=== PATIENT | male | born 1955 | race Caucasian/White ===

== ENCOUNTER → 2018-10-02 | Outpatient (CLI) | payer BC ==
[2018-10-02 09:27] LABS: ALANINE AMINOTRANSFERASE 24 U/L (0-55); ALBUMIN 4.4 GM/DL (3.2-4.5); ALKALINE PHOSPHATASE 62 U/L (40-136); BILIRUBIN,TOTAL 1.6 MG/DL (0.1-1.0); BUN/CREATININE RATIO 18; CALCIUM 9.4 MG/DL (8.5-10.1); CARBON DIOXIDE 23 MMOL/L (21-32); CHLORIDE 103 MMOL/L (98-107); CHOLESTEROL 202 MG/DL (< 200); CREATININE SERUM 0.84 MG/DL (0.60-1.30); GFR ESTIMATED > 60; GLUCOSE 109 MG/DL (70-105); HDL CHOLESTEROL 72 MG/DL (40-60); POTASSIUM 4.2 MMOL/L (3.6-5.0); SODIUM 138 MMOL/L (135-145); TOTAL PROTEIN 7.5 GM/DL (6.4-8.2); TRIGLYCERIDES 97 MG/DL (<150); VLDL CHOLESTEROL 19 MG/DL (5-40)
== END ==
LOC: LAB FS 07:11
PROVIDERS: ATTEND Family Medicine
DX: R73.03 Prediabetes (principal); E78.5 Hyperlipidemia, unspecified
CPT/HCPCS: 36415; 80053; 80061; 83036

== ENCOUNTER → 2018-11-07 | Outpatient (CLI) | payer BC ==
[2018-11-07 14:57] LABS: ALBUMIN 4.2 GM/DL (3.2-4.5); BILIRUBIN,DIRECT 0.4 MG/DL (0.0-0.3); BILIRUBIN,INDIRECT 0.5 MG/DL; BILIRUBIN,TOTAL 0.9 MG/DL (0.1-1.0); TOTAL PROTEIN 6.4 GM/DL (6.4-8.2)
== END ==
LOC: LAB FS 07:16
PROVIDERS: ATTEND Family Medicine
DX: E78.00 Pure hypercholesterolemia, unspecified (principal)
CPT/HCPCS: 36415; 80076

== ENCOUNTER → 2019-04-22 | Outpatient (CLI) | payer BC ==
[2019-04-22 07:48] LABS: CARBON DIOXIDE 26 MMOL/L (21-32); CHLORIDE 103 MMOL/L (98-107); POTASSIUM 3.9 MMOL/L (3.6-5.0); SODIUM 138 MMOL/L (135-145)
[2019-04-22 07:49] LABS: ALANINE AMINOTRANSFERASE 23 U/L (0-55); ALBUMIN 4.3 GM/DL (3.2-4.5); ALKALINE PHOSPHATASE 60 U/L (40-136); BUN/CREATININE RATIO 18; CALCIUM 8.8 MG/DL (8.5-10.1); CREATININE SERUM 0.83 MG/DL (0.60-1.30); GFR ESTIMATED > 60; GLUCOSE 117 MG/DL (70-105)
[2019-04-22 14:56] LABS: CHOLESTEROL 181 MG/DL (< 200); HDL CHOLESTEROL 77 MG/DL (40-60); TRIGLYCERIDES 74 MG/DL (<150); VLDL CHOLESTEROL 15 MG/DL (5-40)
== END ==
LOC: LAB FS 07:04
PROVIDERS: ATTEND Family Medicine
DX: E78.00 Pure hypercholesterolemia, unspecified (principal); R73.03 Prediabetes
CPT/HCPCS: 36415; 80053; 80061

== ENCOUNTER → 2020-01-23 | Outpatient (CLI) | payer BC ==
[2020-01-23 09:00] LABS: CARBON DIOXIDE 26 MMOL/L (21-32); CHLORIDE 102 MMOL/L (98-107); POTASSIUM 4.2 MMOL/L (3.6-5.0); SODIUM 138 MMOL/L (135-145)
[2020-01-23 09:01] LABS: ALANINE AMINOTRANSFERASE 24 U/L (0-55); ALBUMIN 4.1 GM/DL (3.2-4.5); ALKALINE PHOSPHATASE 75 U/L (40-136); BILIRUBIN,TOTAL 1.2 MG/DL (0.1-1.0); BUN/CREATININE RATIO 20; CALCIUM 8.8 MG/DL (8.5-10.1); CREATININE SERUM 0.81 MG/DL (0.60-1.30); GFR ESTIMATED > 60; GLUCOSE 117 MG/DL (70-105)
[2020-01-23 14:43] LABS: CHOLESTEROL 180 MG/DL (< 200); HDL CHOLESTEROL 79 MG/DL (40-60); TRIGLYCERIDES 66 MG/DL (<150); VLDL CHOLESTEROL 13 MG/DL (5-40)
== END ==
LOC: LAB FS 07:13
PROVIDERS: ATTEND Family Medicine
DX: E78.5 Hyperlipidemia, unspecified (principal); R73.03 Prediabetes
CPT/HCPCS: 36415; 80053; 80061; 83036

== ENCOUNTER 2020-12-14 07:19 | Emergency (ER) | payer BC ==
[~2020-12-14] VITALS: Ht 182.9 cm; Wt 88.9 kg
--- NOTE | 2020-12-14 07:48 | Diagnostic Imaging Report ---
EXAMINATION: Chest radiograph, portable AP view. DATE: 12/14/2020 7:45 AM INDICATION: 65-year-old male, shortness of breath. COMPARISON: None. FINDINGS: Heart size and mediastinal contours are unremarkable. There is no identified pneumothorax. There is no large pleural effusion. There are mild linear opacities in the left lower lobe likely reflecting subsegmental atelectasis. IMPRESSION: 1. Linear opacities in left lower lobe most likely reflect subsegmental atelectasis. 2. No definite acute cardiopulmonary abnormality. Dictated by: Dictated on workstation # [id number]
[2020-12-14 08:17] LABS: HEMATOCRIT 45 % (40-54); HEMOGLOBIN 15.7 G/DL (13.3-17.7); MEAN CORPUSCULAR HEMOGLOBIN 32 PG (25-34); MEAN CORPUSCULAR VOLUME 93 FL (80-99); WHITE BLOOD COUNT 4.3 10^3/uL (4.3-11.0)
[2020-12-14 08:18] LABS: BASOPHILS % (AUTO) 0 % (0-10); EOSINOPHILS % (AUTO) 0 % (0-10); LYMPHOCYTES # (AUTO) 1.1 X 10^3 (1.0-4.0); LYMPHOCYTES % (AUTO) 26 % (12-44); MEAN CORPUSCULAR HGB CONC 35 G/DL (32-36); MEAN PLATELET VOLUME 10.3 FL (7.4-10.4); MONOCYTES # (AUTO) 0.7 X 10^3 (0.0-1.0); MONOCYTES % (AUTO) 15 % (0-12); NEUTROPHILS # (AUTO) 2.5 X 10^3 (1.8-7.8); NEUTROPHILS % (AUTO) 58 % (42-75); PLATELET COUNT 193 10^3/uL (130-400); SMEAR SCAN COMMENT YES
[2020-12-14 08:23] LABS: ALANINE AMINOTRANSFERASE 34 U/L (0-55); ALBUMIN 4.2 GM/DL (3.2-4.5); ALKALINE PHOSPHATASE 74 U/L (40-136); BILIRUBIN,TOTAL 0.4 MG/DL (0.1-1.0); BUN/CREATININE RATIO 14; CALCIUM 8.5 MG/DL (8.5-10.1); CARBON DIOXIDE 25 MMOL/L (21-32); CHLORIDE 100 MMOL/L (98-107); CREATININE SERUM 0.98 MG/DL (0.60-1.30); GFR ESTIMATED > 60; GLUCOSE 110 MG/DL (70-105); POTASSIUM 4.4 MMOL/L (3.6-5.0); SODIUM 137 MMOL/L (135-145); TOTAL PROTEIN 7.5 GM/DL (6.4-8.2)
--- NOTE | 2020-12-14 08:46 | ED Cough/URI ---
General Chief Complaint: Respiratory Problems Stated Complaint: COUGH; FEVER; GEN WEAKNESS Nursing Triage Note: Patient reports he began having symptoms of cough, fever, generalized body aches and weakness one week ago, states he tested positive for COVID-19 one week ago. He reports his cough and activity intolerance have not improved, states he is still running low grade temperatures as of this morning. Source: patient History of Present Illness Date Seen by Provider: Dec 14, 2020 Time Seen by Provider: 07:30 Initial Comments Patient is a 65-year-old male who presents with recent diagnosis Covid 7 days ago with persistent cough, generalized body aches, chills and generalized weakness. Patient states he has poor tolerance to activity and has not been able to complete the weedeater mowing his lawn. He has continued to run low-grade fever this morning of 100.3. He reports headache that is mild. Denies chest pain palpitation and shortness of breath. He denies nausea and vomiting. He is able to keep fluids and food down. He does not have shortness of breath. Patient has taken [id number] meds without improvement. He did contact his PCP yesterday and had a prescriptions of antibiotics steroids and an inhaler called in. He has not yet picked these medications up. Patient denies any other symptoms or complaint. Timing/Duration: changing over time Severity/Quality: dry cough, other Modifying Factors: Improves With Activity, Improves With Rest Associated Symptoms: cough, fever/chills, headache, muscle aches, nasal drainage Allergies and Home Medications Allergies Coded Allergies: No Known Drug Allergies (Unverified , 12/14/20) Patient Home Medication List Home Medication List Reviewed: Yes Review of Systems Review of Systems Constitutional: see HPI EENTM: see HPI Respiratory: see HPI Cardiovascular: see HPI Gastrointestinal: see HPI Genitourinary: see HPI Musculoskeletal: see HPI Skin: see HPI Psychiatric/Neurological: See HPI Hematologic/Lymphatic: See HPI Immunological/Allergic: see HPI All Other Systems Reviewed Negative Unless Noted: Yes Past Jcgqbvj-Nycybh-Fnodwe Hx Patient Social History Tobacco Use?: Yes Substance use?: No Alcohol Use?: Yes Alcohol type: Beer Alcohol Frequency: Daily Pt feels they are or have been: No Past Medical History Surgery/Hospitalization HX: HTN, Diverticulitis Physical Exam Vital Signs - First Documented 12/14/20 07:30 Temp 36.1 Pulse 87 Resp 16 B/P (MAP) 114/71 (85) Pulse Ox 96 O2 Delivery Room Air Capillary Refill : Less Than 3 Seconds Height: '" Weight: lbs. oz. kg; 26.00 BMI Method: General Appearance: other (Anxious) Eyes: Bilateral Eye Normal Inspection, Bilateral Eye PERRL, Bilateral Eye EOMI HEENT: PERRL/EOMI, TMs normal, other (Conjunctiva injected) Neck: non-tender, full range of motion, supple Respiratory: chest non-tender, lungs clear, normal breath sounds Cardiovascular: normal peripheral pulses, regular rate, rhythm Gastrointestinal: non tender, soft Extremities: normal range of motion, non-tender Neurologic/Psychiatric: surgical coder II-XII nml as tested, alert, oriented x 3 Skin: normal color Lymphatic: axilla node tender (R) Focused Exam Sepsis Stage: Ruled Out Lactate Level 12/14/20 07:45: Lactic Acid Level 1.16 Lactic Acid Level Laboratory Tests Test 12/14/20 07:45 Lactic Acid Level 1.16 MMOL/L (0.50-2.00) Progress/Results/Core Measures Suspected Sepsis SIRS Temperature: Pulse: 87 Respiratory Rate: 16 Laboratory Tests 12/14/20 07:45: White Blood Count 4.3 Blood Pressure 114 /71 Mean: 85 12/14/20 07:45: Lactic Acid Level 1.16 Laboratory Tests 12/14/20 07:45: Creatinine 0.98, Platelet Count 193, Total Bilirubin 0.4 Results/Orders Lab Results Laboratory Tests Test 12/14/20 07:45 Range/Units White Blood Count 4.3 4.3-11.0 10^3/uL Red Blood Count 4.85 4.35-5.85 10^6/uL Hemoglobin 15.7 13.3-17.7 G/DL Hematocrit 45 40-54 % Mean Corpuscular Volume 93 80-99 FL Mean Corpuscular Hemoglobin 32 25-34 PG Mean Corpuscular Hemoglobin Concent 35 32-36 G/DL Red Cell Distribution Width 11.2 10.0-14.5 % Platelet Count 193 130-400 10^3/uL Mean Platelet Volume 10.3 7.4-10.4 FL Immature Granulocyte % (Auto) 1 % Neutrophils (%) (Auto) 58 42-75 % Lymphocytes (%) (Auto) 26 12-44 % Monocytes (%) (Auto) 15 H 0-12 % Eosinophils (%) (Auto) 0 0-10 % Basophils (%) (Auto) 0 0-10 % Neutrophils # (Auto) 2.5 1.8-7.8 X 10^3 Lymphocytes # (Auto) 1.1 1.0-4.0 X 10^3 Monocytes # (Auto) 0.7 0.0-1.0 X 10^3 Eosinophils # (Auto) 0.0 0.0-0.3 10^3/uL Basophils # (Auto) 0.0 0.0-0.1 10^3/uL Immature Granulocyte # (Auto) 0.0 0.0-0.1 10^3/uL Sodium Level 137 135-145 MMOL/L Potassium Level 4.4 3.6-5.0 MMOL/L Chloride Level 100 98-107 MMOL/L Carbon Dioxide Level 25 21-32 MMOL/L Anion Gap 12 5-14 MMOL/L Blood Urea Nitrogen 14 7-18 MG/DL Creatinine 0.98 0.60-1.30 MG/DL Estimat Glomerular Filtration Rate > 60 BUN/Creatinine Ratio 14 Glucose Level 110 H 70-105 MG/DL Lactic Acid Level 1.16 0.50-2.00 MMOL/L Calcium Level 8.5 8.5-10.1 MG/DL Corrected Calcium 8.3 L 8.5-10.1 MG/DL Total Bilirubin 0.4 0.1-1.0 MG/DL Aspartate Amino Transf (AST/SGOT) 29 5-34 U/L Alanine Aminotransferase (ALT/SGPT) 34 0-55 U/L Alkaline Phosphatase 74 40-136 U/L Troponin I < 0.30 <0.30 NG/ML Total Protein 7.5 6.4-8.2 GM/DL Albumin 4.2 3.2-4.5 GM/DL Smear Scan YES My Orders Orders - GIFTY RHODES DO Cbc With Automated Diff (12/14/20 07:31) Comprehensive Metabolic Panel (12/14/20 07:31) Troponin I Fs (12/14/20 07:31) Chest 1 View Ap/Pa Only (12/14/20 07:31) Lactic Acid Analyzer (12/14/20 07:31) Ekg Tracing (12/14/20 08:16) Vital Signs/I&O 12/14/20 07:30 Temp 36.1 Pulse 87 Resp 16 B/P (MAP) 114/71 (85) Pulse Ox 96 O2 Delivery Room Air Capillary Refill : Less Than 3 Seconds Blood Pressure Mean: 85 Departure Communication (Admissions) EKG: Normal sinus rhythm, no acute ST-T wave changes. Chest x-ray, basilar atelectasis, no discrete infiltrate per radiology report. Patient with generalized weakness, fatigue with known Covid. Vital signs stable in the ED. He maintains O2 saturation greater than 94% on room air with minimal respiratory effort. Chest x-ray, EKG and labs reviewed without evidence of complication. IV fluids and Toradol given. Patient reassured. Recommendations for continued supportive care and picking up prescriptions at pharmacy upon departing the ED. Return precautions reviewed. Patient verbalizes understanding agreement with discharge instructions prior to departure. Impression Primary Impression: COVID-19 Disposition: 01 HOME, SELF-CARE Condition: Stable Departure-Patient Inst. Decision time for Depature: 08:47 Referrals: KAYLEIGH PATTON MD (PCP/Family) Primary Care Physician Patient Instructions: COVID-19 (DC) Add. Discharge Instructions: Please fill prescription medications provided to you by your primary care provid er upon leaving the emergency department. Also, please monitor your oxygen levels with a digital oxygen sensor available at local pharmacy. Return to the ED if worsening symptoms or failure to maintain an oxygen level of greater than 90%. Continue self quarantine until 3 days after your symptoms resolved. All discharge instructions reviewed with patient and/or family. Voiced un derstanding. GIFTY RHODES DO Dec 14, 2020 08:46
[2020-12-14] MEDS ORDERED: KETOROLAC 30 MG/ML VIAL IVP ONE (09:00)
[2020-12-14] MEDS ORDERED: NS IV 1000 ML 1,000 ML IV SCH (09:00)
[2020-12-14 09:30] VITALS: BP 121/77
== END 2020-12-14 09:30 | disposition home or self-care (01) ==
LOC: EDUNIT# 07:19 → ER FS 07:22
DX: U07.1 COVID-19 (principal); I10 Essential (primary) hypertension
CPT/HCPCS: 36415; 71045; 80053; 83605; 84484; 85025; 93005

== ENCOUNTER → 2021-06-22 | Outpatient (CLI) | payer BC ==
--- NOTE | 2021-06-22 12:49 | Diagnostic Imaging Report ---
CLINICAL INDICATION: Patient with pain in right shoulder, working on engine and heard a pop about 3 weeks ago. EXAM: X-ray of the right shoulder, 3 views. COMPARISON: None. FINDINGS: There is no acute fracture or dislocation. There are small to moderate sized spurs involving the proximal humeral head/neck junction region and right glenoid. There are small spurs involving the acromioclavicular region. 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 Dictated by: Dictated on workstation # [id number]
== END ==
LOC: RAD FS 11:49
PROVIDERS: ATTEND Family Medicine
DX: M19.011 Primary osteoarthritis, right shoulder (principal)
CPT/HCPCS: 73030

== ENCOUNTER → 2021-07-07 | Outpatient (CLI) | payer BC | LOC: ORTHO 10:51 | PROVIDERS: ATTEND Orthopaedic Surgery | DX: M75.101 Unspecified rotator cuff tear or rupture of right shoulder, not specified as traumatic (principal); I10 Essential (primary) hypertension; K21.9 Gastro-esophageal reflux disease without esophagitis; E78.5 Hyperlipidemia, unspecified | CPT/HCPCS: 99202 ==

== ENCOUNTER → 2021-09-29 | Outpatient (CLI) | payer OTHER ==
--- NOTE | 2021-09-29 11:53 | Diagnostic Imaging Report ---
EXAMINATION: Right shoulder MRI without contrast from 09/29/2021. TECHNIQUE: Multiplanar, multisequence non contrast-enhanced MRI of the right upper extremity was accomplished. INDICATION: [place] a pop in the shoulder. Now has right shoulder pain. FINDINGS: There are full-thickness tears of the supraspinatus and infraspinatus tendons with retraction of at least 3.2 cm. There is secondary superior subluxation of the humeral head in relation to the glenoid. There is thinning of the subscapularis tendon consistent with a partial-thickness likely articular-sided tear. No full-thickness tears or retraction appreciated. Motion artifact on the axial images limits evaluation of the biceps tendon. It appears somewhat heterogeneous and enlarged but lies within the bicipital groove. There is a likely intrasubstance or longitudinal split tear. There is heterogeneous signal intensity along the superior labrum, likely degenerative signal. A small tear is difficult to exclude without contrast. There is narrowing and spurring at the acromioclavicular joint. Spurring at the greater tuberosity is noted consistent with rotator cuff tendinopathy. There is marked fatty infiltration and atrophy of the supraspinatus and infraspinatus muscles. The subscapularis muscle appears well preserved. The visualized axilla is unremarkable. There is focal fatty change within the superior border of the deltoid muscle, most likely due to a lipoma. IMPRESSION: 1. Full-thickness retracted tears of the supraspinatus and infraspinatus tendons with secondary superior subluxation of the humeral head in relation to the glenoid. 2. Partial tear of the subscapularis tendon. 3. Longitudinal split tear versus intrasubstance tear of the long head of the biceps tendon. 4. Heterogeneous signal in the superior labrum, likely degenerative signal. A small tear would be difficult to exclude on this noncontrast examination. Dictated by: Dictated on workstation # [id number]
== END ==
LOC: RAD 10:15
PROVIDERS: ATTEND Orthopaedic Surgery
DX: M75.121 Complete rotator cuff tear or rupture of right shoulder, not specified as traumatic (principal)
CPT/HCPCS: 73221

== ENCOUNTER → 2023-02-12 | Outpatient (CLI) | payer BC, MEDICARE ==
--- NOTE | 2023-02-14 09:17 | Diagnostic Imaging Report ---
INDICATION: Chest pain COMPARISON: 12/14/2020 FINDINGS: Frontal and lateral views of the chest demonstrate normal heart size and pulmonary vascularity. The lungs are clear. There are no signs of infiltrate, pleural effusions or pneumothoraces. The visualized osseous structures show no acute abnormalities. IMPRESSION: 1. No acute process. No signs of infiltrates, effusions or pneumothoraces. Dictated by: Dictated on workstation # [id number]
== END ==
LOC: RAD FS 08:53
PROVIDERS: ATTEND Family Medicine
DX: Z00.01 Encounter for general adult medical examination with abnormal findings (principal); I10 Essential (primary) hypertension; E78.2 Mixed hyperlipidemia; R07.9 Chest pain, unspecified; F51.02 Adjustment insomnia
CPT/HCPCS: 71046